=== PATIENT | female | born 1990 | race Caucasian/White ===

== ENCOUNTER 2017-05-30 20:18 | Emergency (ER) | payer SELFPAY ==
[~2017-05-30] VITALS: Ht 152.4 cm; Wt 87.1 kg
[2017-05-30 20:32] VITALS: Ht 152.4 cm; Wt 87.1 kg
[2017-05-30 21:45] VITALS: BP 109/35
== END 2017-05-30 21:45 | disposition home or self-care (01) ==
LOC: ED 20:18
DX: N39.0 Urinary tract infection, site not specified (principal); Z88.0 Allergy status to penicillin
CPT/HCPCS: Q0162